=== PATIENT | male | born 1945 | race Caucasian/White ===

== ENCOUNTER 2016-08-07 00:28 | Day surgery (SDC) | payer OTHER ==
[~2016-08-07] VITALS: Ht 190.5 cm; Wt 127.0 kg
[2016-08-07] VITALS (16 sets, daily range): BP systolic 121–139; BP diastolic 58–78; PULSE 49–99; RESP 10–18; O2SAT 93–100
[~2016-08-07 00:28] MED LIST: AMLO10TA3 PO; APIX5TAB PO; ASCO100089 PO; CHOL100045 PO; DOXA4TAB2 PO; FINA5TAB9 PO; FLC50T PO; HYG25 PO; KRIL1CAP22 PO; LISI-567 PO; METO25TA6 PO; OMEP20CA11 PO; PLAN450T PO; POTA10CA42 PO; SLO64 PO
[2016-08-07] MEDS ORDERED: Ketamine 10 mg/mL 20 mL Inj ONE (00:29)
[2016-08-07] MEDS ORDERED: Rocuronium 10 mg/mL 5 mL Inj ONE (00:29)
[2016-08-07] MEDS ORDERED: Propofol 10,000 mCg/mL 20 mL Inj ONE (00:29)
[2016-08-07] MEDS ORDERED: fentaNYL-PF 50 mCg/mL 2 mL Inj ONE (00:29)
[2016-08-07] MEDS ORDERED: MetoCLOpramide 5 mg/mL 2 mL Inj ONE (00:29)
[2016-08-07] MEDS ORDERED: Dexamethasone 4 mg/mL Inj ONE (00:29)
[2016-08-07] MEDS ORDERED: Ondansetron 2 mg/mL 2 mL Inj ONE (00:29)
[2016-08-07] MEDS ORDERED: Lactated Ringer's 1,000 ML IV SCH (05:00)
[2016-08-07 10:53] LABS: BASOPHILS % (AUTO) 0.6 % (0-3); EOSINOPHILS % (AUTO) 2.6 % (0-5); MONOCYTES % (AUTO) 9.9 % (4-12); Mean Corpuscular Hemoglobin 29.1 pg (27.0-35.0); Mean Corpuscular Volume 83.3 fL (81-100); NEUTROPHILS % (AUTO) 61.6 % (40-74); Platelet Count 203 bil/L (150-400)
[2016-08-07 11:20] LABS: INR 1.04 ratio
--- NOTE | 2016-08-07 11:35 | NUR ---
[facility] Patient admitted to [facility] bed 7 at 1030. at bedside. Patient denies pain. Heart monitor shows Sinus rhythm. HL X 2 placed and labs obtained. ECG 12 in chart. Consent confirmed. History and medications reviewed. pre-procedure teaching done and questions answered.
--- NOTE | 2016-08-07 12:14 | PCM.HPANE ---
Patient Data Surgeon Admitting Provider: Attending Provider:Luis Carlos Curtis MD Primary Care Physician:Annika Espino Other Provider:Trena Pa Anesthesia Reason for Visit Atrial Flutter Ht/WT & BMI Height (Feet): 6 Height (Inches): 3.00 Weight (Kilograms): 127.000 Body Mass Index 34.81 Allergies Coded Allergies: No Known Allergies (Unverified Allergy, Unknown, 11/18/13) Past Anesthesia History Anesthesia History: Positive for:: Anesthesia Reactions (emisis) Diabetes History Hx Diabetes?: No MRSA MRSA: No Medications Hypertension Medication: Yes Home Meds Incl Beta Alee: Yes Date Beta Alee Taken: Aug 07, 2016 (0630) Reported Medications Metoprolol Tartrate 25 Mg Qamxhy48.5 Mg PO BID 30 Days Ref 0 08/06/16 Flecainide Acetate 50 Mg Ygzteh21 Mg PO BID 30 Days 08/06/16 Magnesium Chloride (Slow-Mag)64 Mg Zhansw28 Mg PO 04/30/16 Finasteride 5 Mg Tablet5 Mg PO DAILY 30 Days Ref 0 04/30/16 Krill/Om-3/Dha/Epa/Phospho/Ast (Megared [place]-3 Krill Oil Sfgl)500-115-30 Capsule1 Each PO 04/30/16 Cholecalciferol (Vitamin D3) (Vitamin D)1,000 Unit Capsule1,000 Unit PO DAILY # 1 BOTTLE Ref 0 04/30/16 Plant Stanol Erika (Cholest Off)450 Mg Btlfzy009 Mg PO BID 04/30/16 Ascorbic Acid (Vitamin C)1,000 Mg Tab.chew1,000 Mg PO DAILY Ref 0 04/30/16 Apixaban (Eliquis)5 Mg Tablet5 Mg PO BID 04/30/16 Omeprazole 20 Mg Capsule.dr20 Mg PO DAILY Ref 0 04/30/16 Doxazosin (Cardura)4 Mg Tablet4 Mg PO HS Ref 0 04/30/16 Chlorthalidone 25 Mg Rigctl18 Mg PO DAILY #30 TABLET 04/30/16 Amlodipine 10 Mg Qixwla46 Mg PO DAILY Ref 0 04/30/16 Lisinopril 20 Mg Vlgorq39 Mg PO BID 30 Days Ref 0 04/30/16 Potassium Chloride 10 Meq Capsule.er20 Meq PO BID 30 Days Ref 0 TAKE WITH FOOD 04/30/16 Discontinued Reported Medications Metoprolol Tartrate 100 Mg Tcbogl59 Mg PO BID 30 Days Ref 0 04/30/16 Discontinued Scripts Magnesium Chloride (Slow-Mag)64 Mg Yxvchs65 Mg PO BID #60 TABLET Ref 3 Prov:Valerie Colorado MD 09/05/13 History History of ENT Problems?: Yes HEENT History: Positive for:: Cataracts (Beginning in right eye) Denies:: Dysphagia Glaucoma Sinus Problem Hx of Heart Problems?: Yes Cardiovascular History: Positive for:: Chest Pain (chest pressure) Edema (Trace edema) Hypertension Irregular Heartbeat (Aflutter recently diagnosed) Denies:: Cardiac Surgery Congestive Heart Failure Heart Murmur Pacemaker Peripheral Vascular Thrombophlebitis Hx of Respiratory Problem?: Yes Respiratory History: Denies:: Asthma COPD Chest Surgery Dyspnea Emphysema Hemoptysis Pneumonia Tuberculosis Hx Neurologic Problems?: No Neurological History: Denies:: Alzheimer's Disease CVA Dementia Dizziness Headaches Parkinson's Disease Seizures Hx of GI Problems?: Yes Gastrointestinal History: Denies:: Diverticulitis Gastroesphageal Reflux Gastrointestinal Bleeding Heartburn Hepatitis Hiatal Hernia Rectal Bleeding Hx of Problems?: No Genitourinary History: Denies:: Kidney Stones Urinary Tract Infection Male Hx: Positive for:: Prostate Problems (Enlarged prostate) Denies:: Scrotal Mass Testicular Surgery Hx Musculoskeletal Problems?: Yes Musculoskeletal History: Positive for:: Back Injury (7 back surgeries) Denies:: Joint Replacement Musculoskeletal Trauma Hx of Psycho/Social Problems?: No Psycho Social History: Denies:: Anxiety Bipolar Disorder Hx Depression Suicide Attempt Hx Surgeries?: Yes (7 back surgeries) Hx Any Other Health Problems?: Yes Other History: Positive for:: Hospitalization Denies:: Cancer Endocrine Disease Thyroid Disease History Blood Transfusions: Positive for:: Accept Blood Products? Blood Transfusions Denies:: Blood Transfuse Reaction Hx Diabetes: No Hx Alcohol Use: NoHx Substance Use: No Smoking Status: Former Smoker Have You Smoked inLast 12 mo: No Stop/Bang Treated for Sleep Apnea?: No Do You Have a CPAP Machine?: No NORBERT Risk Assessment: High Risk, =/>3 Yes Risk Assessment Category Category 1A: Patient has history of documented sleep apnea, and HAS NOT received any narcotic, sedative or anesthesia administration during this stay. Category 1B: Patient has history of documented sleep apnea, and HAS received any narcotic , sedative or anesthesia administration during this stay Category 2: Patient has SUSPECTED Obstructive Sleep Apnea, and HAS received any narcotic , sedative or anesthesia administration during this stay. Category 3: Patient has SUSPECTED Obstructive Sleep Apnea and HAS NOT received narcotic, sedative or anesthesia administration during this stay. Category 4: Outpatient in Procedural Areas with known sleep apnea or who screen positive for High Risk via the STOP/BANG questionnaire. Exam Exam Vital Signs Vital Signs Date Time Temp Pulse Resp B/P Pulse Ox O2 Delivery O2 Flow Rate FiO2 08/07/16 10:51 49 12 138/69 08/07/16 10:45 36.7 49 12 138/69 98 Room Air General Appearance: Oriented X3 HEENT/AIRWAY: MP 2 Lungs: Normal Air Movement Heart: Regular Rate/Rhythm Meds/Labs/Diagnostics Labs Test 08/07/16 10:47 White Blood Count 4.6th/mm3 (3.8-10.1) Red Blood Count 4.67mil/mm3 (4.40-5.80) Hemoglobin 13.6g/dL (13.8-17.2) Hematocrit 38.9% (41.0-50.0) Mean Corpuscular Volume 83.3fL (81-100) Mean Corpuscular Hemoglobin 29.1pg (27.0-35.0) Mean Corpuscular Hemoglobin Concent 35.0% (32.0-37.0) Red Cell Distribution Width 12.9% (12.3-15.4) Platelet Count 203bil/L (150-400) Neutrophils (%) (Auto) 61.6% (40-74) Lymphocytes (%) (Auto) 25.1% (14-46) Monocytes (%) (Auto) 9.9% (4-12) Eosinophils (%) (Auto) 2.6% (0-5) Basophils (%) (Auto) 0.6% (0-3) Prothrombin Time 11.1sec (8.1-12.5) Prothromb Time International Ratio 1.04ratio Sodium Level 139mEq/L (134-144) Potassium Level 3.8mEq/L (3.5-5.2) Chloride Level 100mEq/L (97-108) Carbon Dioxide Level 23mmol/L (18-29) Blood Urea Nitrogen 16mg/dL (8-27) Creatinine 0.83mg/dL (0.76-1.27) Estimat Glomerular Filtration Rate 97mL/min (>59) Glucose Level 114mg/dL (60-99) Calcium Level 9.4mg/dL (8.5-10.1) Plan Impression Patient chart reviewed, patient interviewed and anesthestic plan with risks, benefits, and alternatives discussed, and informed consent obtained. ASA Physical Status: ASA2 Mod Systemic Disease Anesthetic Support Modalities: Arterial Line Anesthetic Plan: GA Bene/Risks/Altern/Consents: Yes HP Complete Prior to Induction: Yes Juan Gonsalves MD Aug 07, 2016 12:14
[2016-08-07] MEDS ORDERED: Heparin 1,000 Unit/mL 10 mL Inj ONE (12:19)
[2016-08-07] MEDS ORDERED: 0.9% Sodium Chloride 1,000 ML ONE (12:19)
[2016-08-07] MEDS ORDERED: Heparin 10,000 Unit/1,000 mL NS Premix IV ONE (12:19)
[2016-08-07] MEDS ORDERED: Ondansetron 2 mg/mL 2 mL Inj IVPUSH PRN (14:50)
[2016-08-07] MEDS ORDERED: HYDROcodone-APAP 5-325 mg Tablet PO PRN (14:50)
--- NOTE | 2016-08-07 15:32 | PROCED ---
[address] [address] PROCEDURE NOTE PATIENT: JONN BUSTAMANTE : 1945 MR#: [id number] ADMIT: 08/07/2016 JOB ID: [id number] DATE OF SERVICE: 08/07/2016 PREOPERATIVE DIAGNOSIS(ES): Paroxysmal atrial flutter. POSTOPERATIVE DIAGNOSIS(ES): Paroxysmal atrial flutter. PROCEDURES PERFORMED: 1. Comprehensive electrophysiology study. 2. Three-dimensional electroanatomic mapping using the CARTO 3 system. 3. Atrial flutter ablation (cavotricuspid isthmus ablation; atrial ablation). 4. Fluoroscopy. SURGEON: Luis Carlos Curtis MD, electrophysiology attending. PHYSICIAN FIBERGLASS FABRICATOR: 1. Margarito Hinton. 2. Chichi Pierce. ANESTHESIA: General endotracheal anesthesia was undertaken for this case. INDICATION: The patient is a pleasant 71-year-old man with recurrent symptomatic drug refractory atrial flutter. After discussion of risks and benefits of catheter based mapping and ablation, he opted to proceed. PROCEDURAL DESCRIPTION: Following informed signed consent, the patient was taken to the EP laboratory in a fasting, nonsedated state where he was prepped and draped in the usual sterile fashion. The right inguinal region was infiltrated with 1% lidocaine. Then, using the modified Seldinger technique, one 8 and two 7-Romansh sheaths were inserted through the right femoral vein. Under fluoroscopic guidance, a deflectable decapolar catheter was advanced into the coronary sinus with the most proximal bipole at the os of the sinus. A 20 pole Livewire catheter was used to encircle the tricuspid annulus. A J curve irrigated ablation catheter was brought into the field and used to secure three-dimensional electroanatomic map of the right atrium, tricuspid anulus and cavotricuspid isthmus. Pacing was undertaken from the coronary sinus os while monitoring the atrial activation pattern on the Livewire catheter. A linear series of ablations was performed from the ventricular to the IVC aspect of the cavotricuspid isthmus at the 6 o'clock position. Ultimately, medial to lateral block was attained. Lateral to medial was confirmed. A 20-30 minute waiting period was undertaken during which bidirectional block was confirmed. During the course of this study, we did complete a comprehensive electrophysiology study with right atrial pacing and recording, right ventricular pacing and recording, His bundle recording and pacing via the coronary sinus catheter. All catheters and sheaths were removed. Manual pressure was held for hemostasis. The patient was transferred to the [facility] for recovery, bedrest and discharge. COMPLICATIONS: None. ESTIMATED BLOOD LOSS: Negligible. FINDINGS: 1. Baseline rhythm is sinus with an RR interval of 98 msec, WA 182 msec, QRS 97 msec, QT 406 msec. 2. Intracardiac intervals: AH interval 85 msec, HV 51 msec. 3. Retrograde conduction: Atrial activation was concentric. VA Wenckebach is 420 msec. 4. Antegrade conduction: AV Wenckebach 330 msec. 5. Cavotricuspid isthmus ablation as described above with bidirectional block, specifically transisthmus time was 145 msec in a medial to lateral direction and 147 msec in a lateral to medial direction. IMPRESSION: Successful cavotricuspid isthmus ablation for recurrent refractory typical atrial flutter. PLAN: 1. Bedrest x4 hours. 2. Continue current medication regimen including flecainide, beta blockade and anticoagulation. 3. Followup with Eitan Young in clinic in 3-4 weeks and thereafter with Dr. Colorado. ATTENDING STATEMENT: Luis Carlos Curtis MD, electrophysiology attending, was present for and supervised/performed all aspects of this procedure.
--- NOTE | 2016-08-07 15:46 | PCM.ANEP1 ---
Post Anesthesia Phase 1 PACU Phase 1 Assessment Vital Signs Vital Signs Date Time Temp Pulse Resp B/P Pulse Ox O2 Delivery O2 Flow Rate FiO2 08/07/16 15:30 73 12 139/69 99 Oxy Mask 4.00 08/07/16 15:30 73 12 139/69 08/07/16 15:15 79 18 134/72 99 Oxy Mask 6.00 08/07/16 15:14 80 15 130/78 08/07/16 15:10 80 15 130/78 98 Oxy Mask 12.00 08/07/16 10:51 49 12 138/69 08/07/16 10:45 36.7 49 12 138/69 98 Room Air Anesthetic Administered: GA Level of Alertness: Awake, talking Pain: No Nausea or Vomiting: No Oxygen Delivery: Room Air Lungs: Normal Air Movement Juan Gonsalves MD Aug 07, 2016 15:46
--- NOTE | 2016-08-07 15:46 | PCM.ANEP2 ---
Post Anesthesia Evaluation ASA/CMS Post Anesthesia VS in Patient's Normal Range?: Yes Resp Stable; Airway Patent?: Yes CV Function & Hydration Stable: Yes Mental Status Recovered?: Yes Pain control Satisfactory?: Yes N/V Control Satisfactory?: Yes Juan Gonsalves MD Aug 07, 2016 15:46
--- NOTE | 2016-08-07 18:34 | NUR ---
transfer to room 3019 patient transfer from [facility] S/P SVT ablation. patient arrived at 1830hrs. denies pain/SOB, N/V or dizziness. right groin site stable. no pain ;no hematoma. distal pulses present.
--- NOTE | 2016-08-07 19:46 | NUR ---
[facility] Patient return from laborer rags ablation with anesthesia at 1500. at bedside. Patient sleeping but wakes to voice. Denies pain. Returned with right radial art line which was DC'd in [facility]. Oxymask at 12 L and was decreased to 6L on return and weaned off in [facility]. No bleeding or hematoma at right groin venous puncture. Pedal pulses present. When awake taking PO but HNV. Transferred by bed to room 3019 at 1815. Report to receiving RN.
[2016-08-08 01:01] VITALS: BP 112/66; PULSE 76; RESP 18; O2SAT 94
[2016-08-08 05:20] VITALS: PULSE 84
[2016-08-08 05:34] VITALS: BP 135/63; PULSE 72; RESP 18; O2SAT 96
[2016-08-08 05:52] VITALS: PULSE 91
--- NOTE | 2016-08-08 06:17 | NUR ---
Groin site Access siite in R groin soft, drsg. CDI, pedal pulses good. Pt denies any pain, gianni's to high 40's and low 50's during sleep, asymptomatic.
[2016-08-08] MEDS ORDERED: Pantoprazole 20 mg ER24 Tablet PO SCH (06:30)
[2016-08-08 08:00] VITALS: PULSE 74
[2016-08-08] MEDS ORDERED: Potassium Chloride 20 mEq SR Tablet PO SCH (08:00)
[2016-08-08] MEDS ORDERED: Ascorbic Acid 500 mg Tablet PO SCH (08:30)
[2016-08-08] MEDS ORDERED: Magnesium Chloride SR 64 mg ER24 Tablet PO SCH (08:30)
--- NOTE | 2016-08-08 09:09 | PCM.DIMED ---
Discharge Instructions Date of Service Aug 08, 2016 Dates of Hospitalization Discharge Diagnosis Discharge Diagnosis Atrial Flutter Hypertension Sleep Apnea Diet Heart Healthy Activity Other (To prevent infection, do not sit in a bath tub, hot tub or pool for 5 days. To prevent bleeding, do not lift, push or pull more than 10 lbs for 5 days.) Call your provider Bleeding, Weakness (unilateral) Patient Instructions Mid-level Provider (F9): Eitan Young PA-C Follow-up with Mid-level in: 5 weeks Eitan Young PA-C Aug 08, 2016 09:09
--- NOTE | 2016-08-08 09:55 | DIS ---
[address] [address] DISCHARGE SUMMARY PATIENT: JONN BUSTAMANTE : 1945 MR#: [id number] ADMIT: 08/07/2016 JOB ID: [id number] DIS: 08/08/2016 REASON FOR ADMISSION: Atrial flutter ablation. CHIEF COMPLAINT: Persistent atrial flutter which has been symptomatic and on one occasion, required cardioversion. During atrial fib, he gets lightheaded and has chest discomfort with dyspnea. He was advised of the possibility of a procedure for definitive therapy of atrial flutter and wished to have that done. COURSE IN HOSPITAL: The patient was admitted to the [facility] and taken to the cath laboratory where he underwent first general anesthesia by the anesthesiologist and then had the atrial flutter ablation procedure performed without incident. He was awakened from anesthesia, after the femoral sheaths were removed and hemostasis was obtained, and then he was transferred back to the [facility] where he did well. He has remained in sinus rhythm and in the morning was ambulatory without difficulty. He has had no bleeding or pain at the femoral access site. DISPOSITION: The patient was discharged home in good condition with a follow up appointment at the [facility] Cardiology office in one month. He was asked not to lift, push or pull more than 10 pounds for five days to prevent bleeding and to prevent infection he was asked not to sit in a bathtub, hot tub or pool for five days. He will follow a heart healthy diet and take medications as prescribed. DISCHARGE MEDICATIONS: 1. Amlodipine 10 mg daily. 2. Apixaban 5 mg b.i.d. 3. Ascorbic acid 1000 mg daily. 4. Chlorthalidone 25 mg daily. 5. Vitamin D 3 1000 units daily. 6. Doxazosin 4 mg q.h.s. 7. Finasteride 5 mg daily. 8. Flecainide 25 mg b.i.d. 9. Krill oil soft gel 1 capsule daily. 10. Lisinopril 20 mg b.i.d. 11. Magnesium chloride 64 mg daily. 12. Metoprolol tartrate 12.5 mg b.i.d. 13. Omeprazole 20 mg daily. 14. 1 tablet b.i.d. 15. Potassium chloride 20 mEq b.i.d. FINAL DIAGNOSES: 1. Atrial flutter. 2. Atrial fibrillation. 3. Hypertension. 4. Sleep apnea.
[2016-08-08 10:00] VITALS: BP 130/68; PULSE 58; RESP 18; O2SAT 98
--- NOTE | 2016-08-08 10:16 | NUR ---
Discharge Patient given discharge orders. Patient IV X2 removed fully intact and asymptomatic. Patient given medication list and when medications were last given. Patient in room at discharge. Patient given informational packets. Patient walked to main entrance.
== END 2016-08-08 10:25 | disposition home or self-care (01) ==
LOC: SOUO 00:28 → MPC 18:37 → SOUO 23:59
PROVIDERS: ATTEND Internal Medicine Cardiovascular Disease
DX: I48.92 Unspecified atrial flutter (principal); I48.3 Typical atrial flutter; Z79.01 Long term (current) use of anticoagulants; I48.91 Unspecified atrial fibrillation; I10 Essential (primary) hypertension; G47.30 Sleep apnea, unspecified; E78.5 Hyperlipidemia, unspecified
CPT/HCPCS: 36415; 80048; 85025; 85610; 93005; 93613; 93621; 93653; C1731; C1732; C1893; J1100; J1644; J2250; J2405; J2765; J3010; J7030